=== PATIENT | male | born 2000 | race Caucasian/White ===

== ENCOUNTER 2022-06-01 23:04 | Emergency (ER) | payer MEDICAID, SELFPAY ==
[2022-06-01 23:05] VITALS: BP 119/69; PULSE 97; RESP 16; TEMP 37.8; O2SAT 98; BMI 17.9
--- NOTE | 2022-06-01 23:22 | EDS_ITS ---
HPI History of Present Illness Chief Complaint: Headache Narrative Narrative: 22-year-old male presenting with headache. This started a few hours ago. He reports that overnight he woke up a couple times sweating. He did not check his temperature but his significant other did feel his head and felt like he was warm. He states he took his regular ibuprofen that he would normally take just prior to coming into the emergency room. He does admit to body aches, chills and maybe some mild nausea. He has not vomited. No diarrhea or constipation. His significant other states that she and her parents are both sick and she does not have a fever but she feels like she has come down with something. Her parents were sick first. Nobody is tested for anything. Patient has no medical problems. He does not have any neck pain. He is not coughing or short of breath. No abdominal pain. PFSH PFSH Home Medications ondansetron 4 mg disintegrating tablet 4 mg PO Q8H PRN nausea and vomiting #14 tabs 06/01/22 [Rx Last Taken Unknown] Allergy/AdvReac Type Severity Reaction Status Date / Time No Known Allergies Allergy Verified 06/01/22 23:07 Social History Smoking Status: Never smoker ROS ROS ED Constitutional Constitutional ED: Reports chills, fever(s) and sweats Eyes Eyes: Denies change in vision or diplopia ENT ENT ED: Denies rhinorrhea or sore throat Cardiovascular Cardiovascular: Denies chest pain or palpitations Respiratory/Chest Respiratory/Chest: Denies cough or dyspnea Gastrointestinal Gastrointestinal: Denies abdominal pain or constipation Genitourinary Genitourinary ED: Denies dysuria or hematuria Musculoskeletal Musculoskeletal: Reports myalgias; Denies arthralgias or back pain Integumentary Denies abscess or Abrasions Neurologic Neurologic: Reports headache(s) Psychiatric Psychiatric: Denies anxiety or depression EXAM Physical Exam Const Vital Signs: 06/01/22 23:05 06/01/22 23:05 Temperature 100.1 F H 100.1 F H Temperature Source Temporal Temporal Pulse Rate 97 97 Respiratory Rate 16 16 Blood Pressure 119/69 119/69 Blood Pressure Mean 85 85 Pulse Ox 98 98 Oxygen Delivery Method Room Air Room Air Positive well nourished General Appearance ED: NAD; Negative for pallor HEENT Reports normocephalic and moist mucous membranes atraumatic Eyes PERRL and EOMs intact bilaterally General Eye ED: Negative for pale conjunctiva or scleral icterus Neck no lymphadenopathy, supple and no meningeal signs Resp normal respiratory effort and clear to auscultation bilaterally Cardio regular rate and regular rhythm GI non-tender Extremity normal to inspection Neuro oriented x3 and CN's II-XII intact bilaterally Sensorium / Orientation: awake and alert Speech: speech normal Psych mental status grossly normal Skin General Skin Exam: Negative for jaundice or pallor MDM MDM MDM Narrative Medical decision making narrative: Patient with ibuprofen prior to arrival. Bedside oral temperature is 101.3. Patient given a dose of Zofran. He will be tested for COVID. His vital signs are otherwise stable and he has mild symptoms. Lungs are clear to auscultation. Heart regular rate and rhythm without murmur. Respiratory rate 16. 98% on room air. COVID test came back positive. Patient will given a scription for Zofran for home. He is given a work note for 5 days. Discharged in stable condition. Impression: 1. COVID-19 2. Headache 3. Nausea Lab Data Attestation: I reviewed the patient's lab results. Discharge Plan Triage Chief Complaint: Headache ED Provider: Roberto Chow Dx/Rx/DC Orders Instructions: Coronavirus Disease 2019 (COVID-19): Caring for Yourself or Others, ED Headache Unspecified Prescriptions: New ondansetron 4 mg tablet,disintegrating 4 mg PO Q8H PRN (Reason: nausea and vomiting) Qty: 14 0RF Stand Alone Forms: ED Work / School Excuse Primary Care Provider: Care Physician,No Primary Referrals: [facility],Out of [Non-Staff] - Disposition Disposition: Home, Self Care
[2022-06-01] MEDS: Ondansetron ODT 4 MG Tablet PO (23:50)
[2022-06-02 00:35] VITALS: BP 117/75; PULSE 72; RESP 16; O2SAT 100
== END 2022-06-02 00:36 | disposition home or self-care (01) ==
LOC: ED 23:47
PROVIDERS: Emergency Provider Student in an Organized Health Care Education/Training Program; Visit Provider Student in an Organized Health Care Education/Training Program
DX: U07.1 COVID-19 (principal); R51.9 Headache, unspecified; R11.0 Nausea
CPT/HCPCS: 87811; 99283